=== PATIENT | male | born 1975 | race Caucasian/White ===

== ENCOUNTER 2017-10-22 18:17 | Emergency (ER) | payer BC ==
[~2017-10-22] VITALS: Ht 177.8 cm; Wt 73.0 kg
[2017-10-22 18:21] VITALS: BP 150/86
== END 2017-10-22 23:15 | disposition left against medical advice (07) ==
LOC: ER 18:28
DX: M54.2 Cervicalgia (principal); R51 Headache; Z53.21 Procedure and treatment not carried out due to patient leaving prior to being seen by health care provider